=== PATIENT | female | born 1985 | race Hispanic/Latino ===

== ENCOUNTER → 2018-04-03 | Day surgery (SDC) | payer BC ==
[~2018-04-03] MED LIST: BUPIVACAINE 0.25% 30ML SDV INJ ONE; DEXAMETHASONE SOD PHOS INJ 4 MG/ML VIAL ONE; FAMOTIDINE 20 MG/2 ML VIAL IV ONE; FENTANYL CITRATE/PF 100MCG/2 ML INJ ONE; GLYCOPYRROLATE INJ 1MG/ 5 ML SYR ONE; HYDROMORPHONE 2MG/ML 2 MG/ML ML ONE; KETAMINE HCL INJ 50 MG/ML 10 ML VIAL ONE; LIDOCAINE HCL 2% LOCAL INJ 5 ML SDV VIAL INJ ONE; MIDAZOLAM HCL 2 MG/2 ML VIAL ONE; NEOSTIGMINE 5 MG/5ML SYR ONE; NEXIUM40 MG PO; ONDANSETRON HCL INJ 2 MG/ML VIAL ONE; PROPOFOL IV EMULSION 10 MG/ML 20 ML VIAL ONE; RANITIDINE HCL150 MG PO; ROCURONIUM BROMIDE 10 MG/ML 5ML VIAL ONE; SEVOFLURANE INHAL SOLN 250 ML PEN BTL ONE
--- NOTE | 2018-04-03 08:42 | Operative Report ---
DATE OF PROCEDURE: April 03, 2018 PREOPERATIVE DIAGNOSES 1. Chronic adenotonsillitis. 2. Adenotonsillar hypertrophy. 3. Obstructive sleep apnea. 4. Tonsilliths. POSTOPERATIVE DIAGNOSES 1. Chronic adenotonsillitis. 2. Adenotonsillar hypertrophy. 3. Obstructive sleep apnea. 4. Tonsilliths. PROCEDURE: Tonsillectomy and adenoidectomy. SIGNIFICANT FINDINGS: Tonsils were 3+/3+ bilaterally (scarred and cryptic). Adenoids were mildly enlarged. ANESTHESIA: General endotracheal tube anesthesia. SPECIMENS REMOVED: Tonsils (adenoids were coblated). ESTIMATED BLOOD LOSS: Less than 1 mL. COMPLICATIONS: None. INDICATIONS: Patient is a 33-year-old female with a 16-year history of throat problems manifesting as frequent throat and tonsillar infections, as well as frequent tonsilliths. Patient has loud snoring. On examination, her tonsils are 3+/3+, scarred and cryptic. She is scheduled for tonsillectomy and adenoidectomy for the treatment of adenotonsillar hypertrophy and chronic adenotonsillitis, obstructive sleep apnea, and tonsilliths. Risks and complications of the procedures were thoroughly discussed with patient and include infection, bleeding, scarring, failure to improve, need for additional operations, damage to teeth, gums, tongue and lips, persistent throat infections, persistent tonsilliths, persistent snoring, chronic throat pain, inability to taste, numbness of the tongue, scarring of the nasopharynx resulting in worse nasal obstruction, leakage of fluid through the nose when drinking liquids, need for blood transfusions, damage to surrounding nerves, blood vessels, and muscles. She fully understands and gives consent. PROCEDURE: Patient was taken to the operating room and placed supine on the operating table where general anesthesia was achieved through orotracheal intubation. Eyes were taped. Shoulder roll was placed. Head and body were draped. Table was turned 90 degrees with the head towards the surgeon. Octavio-Josh mouth gag was inserted without difficulty and placed in suspension on a Barboza stand. There is no evidence of bifid uvula or diastasis of the muscular uvulae or notched hard palate. Red rubber catheters were then inserted into the nose and brought out through the mouth to retract the soft palate. Examination of the nasopharynx revealed the adenoids to be mildly hypertrophied. Tonsils are 3+/3+ bilaterally. They were scarred with cryptic appearance containing tonsilliths. The left tonsil was grasped with a tonsillar Allis clamp, and was removed with the ArthroCare Coblator on a setting of 6 on cut mode taking care to stay around the capsule of the tonsil. The right tonsil was removed in the same way. Both tonsillar beds were scarred from previous infection. Hemostasis was obtained with the Coblator on a setting of 3 and coag mode. Following this, the adenoids were then removed with the ArthroCare Coblator on a setting of 8 on cut mode taking care to avoid trauma to the torus tubarius bilaterally. Hemostasis was obtained with the Coblator on a setting of 3 on coag mode. Injection with 3 mL of 0.25% plain Marcaine was injected into the free edges of the anterior and posterior tonsillar pillars. Thorough irrigation was then performed. Stomach contents was suction with an NG tube. The red rubber catheters and Octavio-Josh mouth gag were then removed without difficulty revealing no trauma to the teeth, gums, tongue, and lips. Patient was awakened in the operating room, extubated and taken to the recovery room in good condition. Job#: [id number] [facility]
[2018-04-03 10:05] VITALS: BP 130/79
--- OUTSIDE RECORDS SUMMARY | 2018-04-07 13:15 | XMS REPORT ---
Author Author Admin, [place] Organization [facility] Address Unknown Phone Unavailable Allergies, Adverse Reactions, Alerts Allergy Name Reaction Description Start Date Severity Status Provider No Known Allergies Kassy Quiñonez MA Conditions or Problems Problem Name Problem Code Onset Date Status Entry Date Provider Comment Standard Description Annotate Pelvic pain, acute 789.09 Active Ned Richardson MD Abdominal pain, other specified site; multiple sites IUD insertion V25.11 Active Ned Richardson MD Encounter for insertion of intrauterine contraceptive device Annual immigration attorney exam V72.3 Active Ned Richardson MD Special investigations and examinations - Gynecological examination Cervix, screening for malignant neoplasm V76.2 Active Ned Richardson MD Screening for malignant neoplasms of the cervix Hx of deep vein thrombosis V12.51 Active Ned Richardson MD Personal history of venous thrombosis and embolism Screening for std V74.5 Active Ned Richardson MD Screening examination for venereal disease Medication List Medication Instructions Start Date Stop Date Generic Name NDC Status Provider Patient Instruction ALPRAZOLAM 0.5 MG ORAL TABLET TK 1 T PO TID PRA ALPRAZOLAM 92272037525 Active Ned Richardson MD Active Vital Signs Date Name Value Unit Range Description blood pressure, diastolic 86 mm[Hg] BP honeycutt blood pressure, systolic 134 mm[Hg] BP sys height E&M 65 [in_us] Bdy height pulse rate E&M 78 /min Heart rate respiratory rate E&M 16 /min Resp rate temperature E&M 98.1 [degF] Body temperature weight E&M 273 [lb_av] Weight Measured blood pressure, diastolic 87 mm[Hg] BP honeycutt blood pressure, systolic 121 mm[Hg] BP sys height E&M 65 [in_us] Bdy height pulse rate E&M 88 /min Heart rate respiratory rate E&M 17 /min Resp rate temperature E&M 98.3 [degF] Body temperature weight E&M 268 [lb_av] Weight Measured Diagnostic Results Date Name Value Unit Range Description Lab Report: Ct, Ng, Trich vag by BECCA - Lab chlamydia DNA probe Negative Negative Lab Report: Ct, Ng, Trich vag by BECCA - Microbiology Neisseria gonorrhoeae DNA probe Negative Negative Office Visit: Paragard insertion -- Room 4 - Chemistry beta HCG, urine, semiquantitative negative Encounters Date Encounter Provider Code Facility 15:38:10 CDT Est Patient Exp Problem - 49894 Ned Richardson MD CPT-66447 [place] [facility] Procedures Code Procedure Name Date Entry Date Standard Description CPT-89168 Insertion of intrauterine device (IUD) 11:01:39 MAMMOGRAPHY TECH CPT-J7300 Intrauterine copper contraceptive 11:01:39 MAMMOGRAPHY TECH CPT-55735 Urinalysis - - In House 11:03:35 CDT CPT-13506 New Patient Well Exam (18 - 39 Yrs) - [id number] 11:03:32 CDT
== END | disposition home or self-care (01) ==
LOC: OR 05:14
PROVIDERS: ATTEND Otolaryngology
DX: J35.03 Chronic tonsillitis and adenoiditis (principal); G47.33 Obstructive sleep apnea (adult) (pediatric); G43.909 Migraine, unspecified, not intractable, without status migrainosus; K21.9 Gastro-esophageal reflux disease without esophagitis; F41.9 Anxiety disorder, unspecified; Z86.718 Personal history of other venous thrombosis and embolism
CPT/HCPCS: 42821; 81025; 88304; J1100; J1170; J2001; J2250; J2405; J3490